=== PATIENT | female | born 1970 | race Caucasian/White ===

== ENCOUNTER 2016-10-08 13:21 | Emergency (ER) | payer OTHER ==
[2016-10-08 13:40] VITALS: TEMP 98; BMI 29.2
[2016-10-08] MEDS ORDERED: ONDANSETRON 4 MG/2 ML VIAL IVPB ONE (14:11)
[2016-10-08] MEDS ORDERED: ONDANSETRON 4 MG/2 ML VIAL ONE (14:18)
--- NOTE | 2016-10-08 15:05 | PDOC ---
History of Present Illness <Laz Ahmadi - Last Filed: 10/08/16 15:46> - General History Source: Patient, Family (Daughter ) Exam Limitations: No Limitations - History of Present Illness Initial Comments: 10/08/16 15:46 The patient is a 46 year old female, with a significant past medical history of arthritis and psoriasis, who presents to the emergency department with difficulty swallowing after a witnessed choking episode on a soft taco with rice at approximately 1PM this afternoon. The patients daughter is with her in the ED. She was with the patient when the incident occurred. She states that the patient immediately began vomiting. The patient reports that she feels like something is stuck in her throat. The patient denies any difficulty breathing or any mouth or throat swelling. Allergies: None reported. Past Surgical History: None reported. Social History: Non smoker. Denies alcohol or drug use. PCP: Dr. Donovan <Candy Meek - Last Filed: 10/08/16 16:00> - General Stated Complaint: DIFFICULTY SWALLOWING Time Seen by Provider: 10/08/16 13:28 Past History - Past Medical History Other medical history: arthritis - Psycho/Social/Smoking Cessation Hx Suicidal Ideation: No Smoking History: Never smoked <Chris Ahmadian - Last Filed: 10/08/16 15:46> <Candy Meek - Last Filed: 10/08/16 16:00> - Past Medical History Allergies/Adverse Reactions: Allergies Allergy/AdvReac Type Severity Reaction Status Date / Time No Known Allergies Allergy Verified 10/08/16 13:32 Home Medications: Ambulatory Orders Methotrexate [Mexate -] 0 mg PO Q7D 10/08/16 Review of Systems - Review of Systems Able to Perform ROS?: Yes Comments:: 10/08/16 15:47 CONSTITUTIONAL: No reported: Fever, Chills, Diaphoresis, Generalized Weakness, Malaise, Loss of Appetite HEENT: Reported: +Difficulty swallowing No reported: Rhinorrhea, Nasal Congestion, Throat Pain, Throat Swelling, Mouth Swelling, Ear Pain, Eye Pain, Visual Changes CARDIOVASCULAR: No reported: Chest Pain, Syncope, Palpitations, Irregular Heart Rate, Lightheadedness, Peripheral Edema RESPIRATORY: No reported: Cough, Shortness of Breath, SOB with Exertion, Orthopnea, Wheezing , Stridor, Hemoptysis GASTROINTESTINAL: Reported: +Nausea, vomiting No reported: Abdominal pain, Abdominal Distension, Diarrhea, Constipation, Melena, Hematochezia GENITOURINARY: No reported: Dysuria, Frequency, Urgency, Hesitancy, Flank Pain, Genital Pain MUSCULOSKELETAL: No reported: Myalgia, Arthralgia, Joint Swelling, Back pain, Neck Pain SKIN: No reported: Rash, Itching, Pallor HEMATOLOGIC/IMMUNOLOGIC: No reported: Easy Bleeding, Easy Bruising, Lymphadenopathy, Frequent infections ENDOCRINE: No reported: Unexplained Weight Gain, Unexplained Weight Loss, Heat Intolerance , Cold Intolerance NEUROLOGIC: No reported: Headache, Focal Weakness, Paresthesias, Vertigo, Lightheadedness, Unsteady Gait, Seizure, Mental Status Changes, Incontinence PSYCHIATRIC: No reported: Anxiety, Depression <Candy Meek - Last Filed: 10/08/16 16:00> *Physical Exam - Vital Signs Last Vital Signs Temp Pulse Resp BP Pulse Ox 98.0 F 88 18 126/74 100 10/08/16 13:36 10/08/16 13:36 10/08/16 13:36 10/08/16 13:36 10/08/16 13:36 <Laz Ahmadi - Last Filed: 10/08/16 15:46> - Vital Signs Last Vital Signs Temp Pulse Resp BP Pulse Ox 98.0 F 88 18 126/74 100 10/08/16 13:36 10/08/16 13:36 10/08/16 13:36 10/08/16 13:36 10/08/16 13:36 - Physical Exam Comments: 10/08/16 15:47 GENERAL: The patient is awake, alert, and fully oriented, Nontoxic - in no acute distress. HEAD: Normocephalic, atraumatic. EYES: extraocular movements intact, sclera anicteric, conjunctiva clear. ENT: Posterior pharynx is patent with no visible fb, Localizes pain and foreign body location to right upper neck. Normal voice, moist mucous membranes. no stridor appreciated NECK: Normal range of motion, supple. LUNGS: Breath sounds equal, clear to auscultation bilaterally. No wheezes, no rhonchi, no rales. HEART: Regular rate and rhythm, without murmur, rub or gallop. ABDOMEN: Soft, nontender, normoactive bowel sounds. No guarding, no rebound. No CVA tenderness EXTREMITIES: Normal range of motion, no edema. No clubbing or cyanosis. No cords , erythema, or tenderness. NEUROLOGICAL: No facial asymmetry. Normal speech. PSYCH: Normal mood, normal affect. SKIN: Warm, dry, normal turgor. <Candy Meek - Last Filed: 10/08/16 16:00> Heart Score/ECG Review - ECG Impressions Comment:: 10/08/16 15:14 Twelve-lead EKG was performed and reviewed by me. There is normal sinus rhythm with a normal rate. Rate of 73 The axis is normal. The intervals are normal. There is normal R wave progression There are no ST or T wave abnormalities. Impression: Normal twelve-lead EKG <Laz Ahmadi - Last Filed: 10/08/16 15:46> ED Treatment Course - RADIOLOGY Radiology Studies Ordered: Category Date Time Status NECK SOFT TISSUE [RAD] Stat Radiology 10/08/16 14:11 Completed NECK SOFT TISSUE [RAD] Stat Radiology 10/08/16 15:01 Ordered - Medications Given in the ED: ED Medications Discontinued Medications Generic Name Dose Route Start Last Admin Trade Name Freq PRN Reason Stop Dose Admin Ondansetron HCl 4 mg 10/08/16 14:11 10/08/16 14:25 Zofran Injection IVPB 10/08/16 14:12 4 mg ONCE ONE Administration <Laz Ahmadi - Last Filed: 10/08/16 15:46> - Medications Given in the ED: ED Medications Discontinued Medications Generic Name Dose Route Start Last Admin Trade Name Freq PRN Reason Stop Dose Admin Ondansetron HCl 4 mg 10/08/16 14:11 10/08/16 14:25 Zofran Injection IVPB 10/08/16 14:12 4 mg ONCE ONE Administration <Candy Meek - Last Filed: 10/08/16 16:00> Medical Decision Making - Medical Decision Making 10/08/16 15:03 46y F presenting with FB sensation in her throat while eating - multiple episode of vomiting, unable to see naything on her pharynx - pt is tolerating her oral secretions but is obvious uncomfortbale - no signs of respiratory distress, no stridor. xray of her neck reveals a liniear density - after xray pt vomited and thought she saw a bone, but it went down the drain and states she feels sifnicaintly improved will obtain repeat xray 10/08/16 15:44 The patient's repeat x-ray is read as negative for any opaque foreign body, the patient is currently asymptomatic she is resting comfortably, able to swallow without any symptoms or pain. I will discharge the patient to follow up with her primary care doctor, return precautions were discussed I discussed the physical exam findings, ancillary test results and final diagnoses with the patient. I answered all of the patient's questions. The patient was satisfied with the care received and felt comfortable with the discharge plan and treatment plan. The patient will call their primary care physician within 24 hours to arrange follow-up and will return to the Emergency Department with any new, persistent or worsening symptoms. A portion of this note was documented by scribe services under my direction. I have reviewed the details of the note, within reason, and agree with the documentation with the following case summary and management plan written by me <Laz Ahmadi - Last Filed: 10/08/16 15:46> - Medical Decision Making 10/08/16 15:59 EXAM: RAD/NECK SOFT TISSUE Reviewed By: Dr. Laci Quintana IMPRESSION: Questionable linear metallic foreign body in soft tissues just posterior to the thyroid cartilages. EXAM: RAD/NECK SOFT TISSUE Reviewed By: Dr. Laci Quintana IMPRESSION: No sign of a radiopaque foreign body or soft tissue air. Slight angulation of lower cervical thoracic airway. This could be due to positioning. If symptoms persist, further imaging and direct visualization may be of help. <Candy Meek - Last Filed: 10/08/16 16:00> *DC/Admit/Observation/Transfer - Discharge Dispostion Admit: No <Laz Ahmadi - Last Filed: 10/08/16 15:46> - Attestations Scribe Attestion: 10/08/16 15:28 Documentation prepared by Candy Meek, acting as biomedical field service engineer for Laz Ahmadi MD. <Candy Meek - Last Filed: 10/08/16 16:00> Diagnosis at time of Disposition: Foreign body alimentary tract Qualifiers: Encounter type: initial encounter Qualified Code(s): T18.9XXA - Foreign body of alimentary tract, part unspecified, initial encounter - Discharge Dispostion Disposition: HOME Condition at time of disposition: Improved - Referrals Referrals: Criselda Donovan MD [Primary Care Provider] - - Patient Instructions Printed Discharge Instructions: DI for Removal of Foreign Body From Esophagus Additional Instructions: Return to the emergency department immediately with ANY new, persistent or worsening symptoms. You MUST call and follow up with your doctor tomorrow for further evaluation of your symptoms. Results were discussed with you. Please make sure your doctor reviews the results of your emergency evaluation. If you had any xrays during your visit, it was read preliminarily by myself, a Radiologist will review it and if there are any additional findings we will call you.
[2016-10-08 15:47] VITALS: BP 125/76; PULSE 79
--- NOTE | 2016-10-08 23:18 | EKG ---
Test Reason : Blood Pressure : / mmHG Vent. Rate : 073 BPM Atrial Rate : 073 BPM P-R Int : 142 ms QRS Dur : 080 ms QT Int : 394 ms P-R-T Axes : 044 008 026 degrees QTc Int : 434 ms NORMAL SINUS RHYTHM NORMAL ECG NO PREVIOUS ECGS AVAILABLE Confirmed by YARITZA DICKSON MD ([id number]) on 10/08/2016 11:18:10 PM Referred By: Confirmed By:YARITZA DICKSON MD
== END 2016-10-08 15:50 | disposition home or self-care (01) ==
LOC: JER 13:21
PROC: 3E033GC Introduction of Other Therapeutic Substance into Peripheral Vein, Percutaneous Approach (ICD-10-PCS; principal; 2016-10-08)
DX: T18.8XXA Foreign body in other parts of alimentary tract, initial encounter (principal); X58.XXXA Exposure to other specified factors, initial encounter; Y93.89 Activity, other specified; Y92.89 Other specified places as the place of occurrence of the external cause
CPT/HCPCS: 70360-TC; 93005; 93010; 99282-25